=== PATIENT | male | born 1955 | race Caucasian/White ===

== ENCOUNTER → 2018-07-27 | Outpatient (CLI) | payer BC ==
--- NOTE | 2018-07-28 09:13 | US ---
EXAM DESCRIPTION: Renal CLINICAL HISTORY: 63 years Male, N18.4 COMPARISON: None. TECHNIQUE: Retroperitoneal sonogram was performed to evaluate the kidneys and bladder. FINDINGS: Right kidney Right renal length is 10.7 cm. Renal cortical echogenicity appears increased consistent with chronic renal parenchymal disease. Correlate with renal function studies. Mild diffuse cortical thinning. No right renal mass or shadowing stone. Small cyst in the lateral right kidney measures 1.3 cm. No hydronephrosis. Left kidney Left renal length is 11.4 cm. Renal cortical thickness is normal but echogenicity appears increased consistent with chronic renal parenchymal disease. No left renal mass, cyst or shadowing stone. No hydronephrosis. Urinary bladder Bladder wall thickness is normal for degree of distention. No bladder mass. Bladder volume is measured as 100 cc. IMPRESSION: Hyperechoic kidneys consistent with chronic renal parenchymal disease. Unremarkable appearance of the urinary bladder. Electronically signed by: Marko Warner MD 07/28/2018 9:12 AM CDT
== END ==
LOC: US 16:09
PROVIDERS: ATTEND Internal Medicine
DX: N18.4 Chronic kidney disease, stage 4 (severe) (principal)

== ENCOUNTER → 2018-07-31 | Outpatient (CLI) | payer BC | LOC: LAB.O 08:37 | PROVIDERS: ATTEND Internal Medicine | DX: N17.9 Acute kidney failure, unspecified (principal); N18.4 Chronic kidney disease, stage 4 (severe); I10 Essential (primary) hypertension ==

== ENCOUNTER 2020-02-15 05:44 | Day surgery (SDC) | payer BC, OTHER ==
[2020-02-15] MEDS ORDERED: LIDOCAINE 1% 10 ML VIAL INJ ONE (07:00)
[2020-02-15] MEDS ORDERED: PROPOFOL 200 MG/20 ML VIAL IV ONE (07:00)
[2020-02-15] MEDS ORDERED: LACTATED RINGERS 1,000 ML IVS ONE (07:35)
[2020-02-15] MEDS ORDERED: LEVALBUTEROL NEBS 1.25 MG/3 ML VIAL NEB ONE (09:39)
--- NOTE | 2020-02-15 09:42 | OP ---
DATE OF PROCEDURE: 02/15/20 PREOPERATIVE DIAGNOSIS: 1. Diarrhea. 2. Dialysis. 3. First colonoscopy at age 64. PROCEDURE: 1. Colonoscopy. SURGEON: Boaz John MD PROCEDURE: General anesthesia was induced in the lateral position. Digital rectal exam was normal. The colonoscope was introduced. We intubated the cecum and took a polyp along the way. After identifying the cecum, upon withdrawal, a polyp was taken with a snare at the proximal transverse colon. It was approximately a 1.2 cm polyp. An additional one was at the distal transverse colon taken with forceps, completely removed. This was about 1.5 cm. There was another 2 mm polyp taken with biopsy forceps at the distal descending colon and then in the sigmoid at about 30 cm was a large polyp, taking up to 30% circumference. It was pedunculated, but the stalk was quite large. It was in a corner, and we could take about half of it. The remainder was not able to be safely removed with a snare. It was marked with 3 mL of dye. The remainder of the exam was normal. We will check pathology, possibly return to remove more or consider a laparoscopic colotomy with polyp removal if it is not not malignant. The patient tolerated the procedure and was taken to Recovery to be discharged. #[id number] cc: Sonali Ham MD [facility]ITAL[facility]cepc[facility]
[2020-02-15 12:17] VITALS: BP 175/80; TEMP 98.2; O2SAT 93
== END 2020-02-15 11:45 | disposition home or self-care (01) ==
LOC: AMB 05:44
PROVIDERS: ATTEND Surgery
DX: R19.7 Diarrhea, unspecified (principal); D12.4 Benign neoplasm of descending colon; D12.3 Benign neoplasm of transverse colon; D12.6 Benign neoplasm of colon, unspecified; J44.9 Chronic obstructive pulmonary disease, unspecified; I12.0 Hypertensive chronic kidney disease with stage 5 chronic kidney disease or end stage renal disease; E11.22 Type 2 diabetes mellitus with diabetic chronic kidney disease; N18.6 End stage renal disease; Z79.899 Other long term (current) drug therapy; Z79.82 Long term (current) use of aspirin; Z99.2 Dependence on renal dialysis
CPT/HCPCS: 00811; 36416; 45380; 45385; 82948; 93005; 94640; J3490; J7120

== ENCOUNTER → 2020-03-07 | Outpatient (CLI) | payer BC, OTHER ==
--- NOTE | 2020-03-07 09:38 | CT ---
EXAM DESCRIPTION: CT ABDOMEN AND PELVIS WITH CONTRAST CLINICAL HISTORY: POLYP OF SIGMOID COLON COMPARISON: Previous renal sonogram July 27, 2018 TECHNIQUE: CT of the abdomen and pelvis are performed during IV bolus administration of 100 mL of Isovue 300. Oral contrast media is administered as well. FINDINGS: In the lower chest, small to moderate bilateral pleural effusions are present with patchy consolidation/partial volume loss in the inferior lingula and both lower lobes. Heart size is prominent. CT abdomen Prominent retroperitoneal lymph nodes are noted. Reactive nodes are favored over metastatic nodes in a patient with a history of colon polyp. Lymphadenopathy syndrome or early lymphoproliferative disorder or granulomatous infection might all be considered. The largest node in the left periaortic region at the level of the left renal hilum has a short axis dimension measurement of 1.3 cm with a normal fatty hilum. Other nodes in the right periaortic and aortocaval regions are smaller in the 0.3 to 1.0 cm size range. Small right renal lesion is consistent with a cyst 9 mm. A cyst was seen in the right kidney on the previous sonogram July 27, 2018 which measured 1.3 cm. Tiny cyst in the anterior left kidney measures 6 mm. No cyst was seen in the left kidney on the previous study. Mild prominence of intrarenal collecting systems. No ureteral obstructing lesion. Otherwise the liver, spleen, pancreas, gallbladder, adrenal glands, stomach and kidneys are unremarkable in appearance. Early portal venous phase enhancement the liver. Prominent IVC may indicate increased right heart pressures. No inflammation around the pancreas. No renal stones or hydronephrosis. No bowel dilatation to suggest obstruction. No free air or free fluid. CT pelvis Appendix appears normal. No inflammation around the cecum or terminal ileum or sigmoid colon. Bladder and distal ureters are negative for stones. Bladder appears thick walled, moderately distended. Normal enhancement of pelvic vessels. No inguinal or lower pelvic adenopathy. Bone window images are negative for fracture or lytic lesion. Advanced degenerative disc disease with vacuum disc phenomenon at L5-S1. Orthopedic screw in the left ilium and sacrum. Another screw in the left supra-acetabular region. Degenerative narrowing of the hip joints and pubic symphysis. Old healed ischiopubic fractures bilaterally. Old healed left sacral fracture. Coronal and sagittal reformatted images confirm the findings. IMPRESSION: [id number] bilateral pleural effusions with patchy infiltrates or partial volume loss in the lingula and lower lobes. Prominent retroperitoneal nodes probably reactive. Prominent bladder wall thickness. This exam was performed according to our departmental dose-optimization program, which includes automated exposure control, adjustment of the mA and/or kV according to patient size and/or use of iterative reconstruction technique. Total DLP equals 1092.09 mGycm. Electronically signed by: Marko Warner MD 03/07/2020 9:36 AM CDT
== END ==
LOC: CT 08:00
PROVIDERS: ATTEND Surgery
DX: D12.5 Benign neoplasm of sigmoid colon (principal); J90 Pleural effusion, not elsewhere classified; R91.8 Other nonspecific abnormal finding of lung field; R59.9 Enlarged lymph nodes, unspecified; N32.9 Bladder disorder, unspecified

== ENCOUNTER 2020-07-16 10:21 | Emergency (ER) | payer BC, OTHER ==
[2020-07-16 10:36] VITALS: O2SAT 95
--- NOTE | 2020-07-16 10:45 | ED.PDOC ---
History of Present Illness - General Chief Complaint: Lower Extremity Injury Stated Complaint: right lower leg pain,callus on foot Time Seen by Provider: 07/16/20 10:22 Source: patient, RN notes reviewed, Vital Signs reviewed, old records - History of Present Illness Initial Comments: 65 yo insulin dependent diabetic with hx of ESRD and multiple amputations comes in after fall. patient fell two days ago after his artificial leg did not lock in properly. His right foot went under him. Didn't have pain immediately, but today woke up with right foot and ankle pain. pain worse with movement. has a hx of callous on bottom of right foot which has been present for several years. Does follow wound care in [facility]. no fever. patient also noted that he has not been to dialysis for the past week. Follows Dr Wynn for wound care. Dr. Ham for nephrology. patient does make urine, but very little. Allergies/Adverse Reactions: Allergies NO KNOWN ALLERGY Allergy (Verified 10/13/15 14:44) Home Medications: Ambulatory Orders Gabapentin [Neurontin] 400 mg PO TID 10/13/15 Amlodipine Besylate 10 mg PO DAILY 02/11/20 Atorvastatin Calcium [Lipitor] 20 mg PO DAILY 02/11/20 Clonidine HCl 0.3 mg PO DAILY 02/11/20 Insulin Aspart [Novolog Flexpen] 5 unit SC PRN PRN 02/11/20 Ramipril 10 mg PO DAILY 02/11/20 Sevelamer Carbonate 800 mg PO TID 02/11/20 Aspirin [Aspirin Adult Low Dose] 81 mg PO DAILY 07/16/20 Review of Systems - Review of Systems Constitutional: Denies: chills, fever EENTM: Denies: blurred vision, ear pain, mouth pain Respiratory: Denies: cough, short of breath Cardiology: Denies: chest pain, palpitations Gastrointestinal/Abdominal: States: other - denies black or bloody bm. Denies: abdominal pain, nausea, vomiting Genitourinary: Denies: dysuria, hematuria Musculoskeletal: States: joint pain, joint swelling. Denies: back pain, muscle pain, muscle stiffness Neurological: Denies: headache, pre-existing deficit, weakness Endocrine: Denies: unexplained weight gain, unexplained weight loss Hematologic/Lymphatic: Denies: blood clots, easy bleeding, easy bruising Past Medical History (General) - Patient Medical History Hx Stroke: No Hx Cardiac Disorders: Yes - Blocked Arteries Hx Congestive Heart Failure: No Hx Hypertension: Yes Hx Diabetes: Yes Hx Renal Disease: Yes - Dialysis ,, Hx MRSA: No Hx Other - free text: colon cancer, anemia Surgical History: cancer surgery - Vaccination History Hx Tetanus, Diphtheria Vaccination: - unknown Hx Influenza Vaccination: Yes - 2019 Hx Pneumococcal Vaccination: Yes - Social History Hx Tobacco Use: Yes Hx Alcohol Use: No Hx Substance Use: No Hx Substance Use Treatment: No Hx Depression: No - Female History Patient : No Family Medical History - Family History Mother Living Status: Still Living Physical Exam - Physical Exam General Appearance: Alert, Comfortable, No apparent distress, Well Developed, Well Groomed, Well Hydrated, Well Nourished Eyes, Ears, Nose, Throat: PERRL/EOMI, normal ENT inspection, TMs normal Neck: non-tender, full range of motion, supple, normal inspection Cardiovascular/Respiratory: regular rate, rhythm, no M/R/G, normal peripheral pulses, no JVD, normal breath sounds, no respiratory distress Gastrointestinal/Abdominal: non-tender, no organomegaly Back: normal inspection, no CVA tenderness, no vertebral tenderness Thigh/Hip: normal inspection, non-tender, no evidence of injury, normal ROM Leg: other - left AKA, right foot callous without erythema, drainage or swelling. Right ankle pain. Foot: other - pulses 2+/4 on right dorsalis pedis. Neuro/Tendon: normal motor functions, responds to pain, no evidence tendon injury Mental Status: alert, oriented x 3 Skin: normal color, warm/dry Progress - Progress Progress: 07/16/20 11:27 partial ddx: fracture, infection, hyperkalemia, sprain. Due to missing dialysis over one week will get blood work. anemia most likely anemia of chronic disease, no concern for acute bleed at this time. Due to missed dialysis, excepted K to be high. patient refused kayexalate. Call dialysis center who is able to see patient today at 12:45. Will give one time dose of albuterol. I suspect elevated CRP is due to chronic inflammatory state and not due to acute infection. Recommend calcium gluconate IV but patient refused. Corrected qt is less than half or R-R interval, but is calculated 490. Thus recommend Ca gluconate. Due to upcoming dialysis appointment and no peaked T waves on EKG will hold off repeat K, and send directly to dialysis which is the ultimate treatment. 07/16/20 11:47 The data reviewed when caring for this patient included: nurse notes, prior records, etc. The history and assessments from nurses notes were reviewed and considered, and the patient's home medication list was also reviewed and co nsidered. My assessment and the results of testing completed here in the ED were discussed with the patient/family. All questions were answered, and they express understanding of my assessment and the plan. They have been instructed to return if their symptoms worsen, and have been asked to follow up with their primary care physician to recheck today's presenting complaint. patient is to go directly to dialysis. He is also to call his wound care doctor to discuss MRI of his foot. Strict return precautions given. patient was discharged to dialysis in stable condition. Camila Eduardo DO #[id number] 07/16/20 11:50 - Results/Orders Results/Orders: 07/16/20 10:50 ERYTHROCYTE SEDIMENTATION RATE Stat 07/16/20 11:12 EKG Assessment ONCE 07/16/20 11:15 EKG STAT Laboratory Results WBC 10.2 K/mm3 (4.8-10.8) 07/16/20 10:50 RBC 2.74 M/mm3 (4.70-6.10) L 07/16/20 10:50 Hgb 8.6 gm/dL (14.0-18.0) L 07/16/20 10:50 Hct 25.1 % (42.0-52.0) L 07/16/20 10:50 MCV 91.5 fl (80.0-94.0) 07/16/20 10:50 MCH 31.4 pg (27.0-31.0) H 07/16/20 10:50 MCHC 34.3 g/dL (33.0-37.0) 07/16/20 10:50 RDW 17.2 % (11.5-14.5) H 07/16/20 10:50 Plt Count 297 K/mm3 (130-400) 07/16/20 10:50 MPV 7.9 fl (7.40-10.4) 07/16/20 10:50 Absolute Neuts (auto) 8.30 K/uL (1.8-6.8) H 07/16/20 10:50 Absolute Lymphs (auto) 0.90 K/uL (1.0-3.4) L 07/16/20 10:50 Absolute Monos (auto) 0.70 K/uL (0.2-0.8) 07/16/20 10:50 Absolute Eos (auto) 0.20 K/uL (0.0-0.4) 07/16/20 10:50 Absolute Basos (auto) 0.10 K/uL (0.0-0.1) 07/16/20 10:50 Neutrophils % 81.3 % (42.0-78.0) H 07/16/20 10:50 Lymphocytes % 8.6 % (20.0-50.0) L 07/16/20 10:50 Monocytes % 7.3 % (2.0-9.0) 07/16/20 10:50 Eosinophils % 1.9 % (1.0-5.0) 07/16/20 10:50 Basophils % 0.9 % (0.0-2.0) 07/16/20 10:50 Sodium 136 mmol/L (135-145) 07/16/20 10:50 Potassium 5.7 mmol/L (3.6-5.0) H 07/16/20 10:50 Chloride 91 mmol/L (101-111) L 07/16/20 10:50 Carbon Dioxide 27 mmol/L (21-31) 07/16/20 10:50 Anion Gap 23.7 (12-18) H 07/16/20 10:50 BUN 49 mg/dL (7-18) H 07/16/20 10:50 Creatinine 6.59 mg/dL (0.6-1.3) H* 07/16/20 10:50 BUN/Creatinine Ratio 7.4 (10-20) L 07/16/20 10:50 Random Glucose 165 mg/dL (70-105) H 07/16/20 10:50 Serum Osmolality 288.6 mOsm/L (275-295) 07/16/20 10:50 Calcium 8.0 mg/dL (8.4-10.2) L 07/16/20 10:50 Total Bilirubin 1.7 mg/dL (0.2-1.0) H 07/16/20 10:50 AST 22 IU/L (10-42) 07/16/20 10:50 ALT 23 IU/L (10-60) 07/16/20 10:50 Alkaline Phosphatase 186 IU/L (42-121) H 07/16/20 10:50 C-Reactive Protein 6.2 mg/dL (0-1.0) H 07/16/20 10:50 Serum Total Protein 7.7 gm/dL (6.4-8.2) 07/16/20 10:50 Albumin 3.2 g/dl (3.2-5.5) 07/16/20 10:50 Globulin 4.5 gm/dL (2.3-3.5) H 07/16/20 10:50 Albumin/Globulin Ratio 0.7 (1.1-1.9) L 07/16/20 10:50 - Additional EKG/XRAY/Consults EKG #2: Sinus Comments: HR 66, no peaked T waves, prolong QT, nonspecfic t wave changes. XRAY #2: ankle - no acute fractures, OA, calcified vessels. Comments: foot no acute fractures. Departure - Departure Clinical Impression: Hyperkalemia, ESRD (end stage renal disease) Fall Qualifiers: Encounter type: initial encounter Qualified Code(s): W19.XXXA - Unspecified fall, initial encounter Ankle sprain Qualifiers: Encounter type: initial encounter Involved ligament of ankle: unspecified ligament Laterality: right Qualified Code(s): S93.401A - Sprain of unspecified ligament of right ankle, initial encounter Time of Disposition: 11:29 Disposition: Discharge to Home or Self Care Departure Forms: ED Discharge - Pt. Copy, Patient Portal Self Enrollment Instructions: DI for Leg Pain, Corns and Calluses, Low Potassium Diet, Preventing Falls, Foot Sprain (DC) Referrals: Larry Alicea MD [Primary Care Provider] - 1-2 Weeks Home Medications: Ambulatory Orders Gabapentin [Neurontin] 400 mg PO TID 10/13/15 Amlodipine Besylate 10 mg PO DAILY 02/11/20 Atorvastatin Calcium [Lipitor] 20 mg PO DAILY 02/11/20 Clonidine HCl 0.3 mg PO DAILY 02/11/20 Insulin Aspart [Novolog Flexpen] 5 unit SC PRN PRN 02/11/20 Ramipril 10 mg PO DAILY 02/11/20 Sevelamer Carbonate 800 mg PO TID 02/11/20 Aspirin [Aspirin Adult Low Dose] 81 mg PO DAILY 07/16/20 Additional Instructions: Please call your wound doctor to follow up and possibly get MRI of foot. If develop redness, worsening pain or fever return to the emergency department. Please go to dialysis today at 12:45/
--- NOTE | 2020-07-16 11:17 | RAD ---
EXAM DESCRIPTION: Ankle,Right 3 Views CLINICAL HISTORY: fall COMPARISON: None. IMPRESSION: 3 views of the right ankle show no acute fracture, focal bone destruction, or joint dislocation. Bony hypertrophy of the distal fibula could represent sequela of remote prior trauma versus osteoarthritic changes. Severe vascular calcifications are identified. Soft tissues are otherwise unremarkable. Electronically signed by: Sharan Fields MD 07/16/2020 11:15 AM CDT
--- NOTE | 2020-07-16 11:19 | RAD ---
EXAM DESCRIPTION: Foot,Right 3 Views CLINICAL HISTORY: fall COMPARISON: None IMPRESSION: 3 views of the right foot show diffuse osteopenia the osseous structures. No acute fracture or dislocation is seen. Amputation of the distal phalanx of the great toe, second and fourth toes, and most of the fifth metatarsal are seen. Severe vascular calcifications are identified. Significant dorsiflexion of the third toe is seen. Osseous structures are diffusely osteopenic. Electronically signed by: Sharan Fields MD 07/16/2020 11:17 AM CDT
[2020-07-16] MEDS ORDERED: ALBUTEROL SULFATE 2.5 MG/3 ML VIAL NEB ONE (11:21)
[2020-07-16] MEDS ORDERED: SOD POLYSTYRENE SULFONATE 15 GM/60 ML BTTL PO ONE (11:22)
[2020-07-16 11:52] VITALS: BP 156/81; TEMP 98.4
== END 2020-07-16 11:52 | disposition home or self-care (01) ==
LOC: ER 10:21
DX: S93.401A Sprain of unspecified ligament of right ankle, initial encounter (principal); E87.5 Hyperkalemia; E11.22 Type 2 diabetes mellitus with diabetic chronic kidney disease; I12.0 Hypertensive chronic kidney disease with stage 5 chronic kidney disease or end stage renal disease; N18.6 End stage renal disease; Z99.2 Dependence on renal dialysis; O25.10 Malnutrition in pregnancy, unspecified trimester; Z79.84 Long term (current) use of oral hypoglycemic drugs; Z79.899 Other long term (current) drug therapy; W19.XXXA Unspecified fall, initial encounter; Y92.9 Unspecified place or not applicable
CPT/HCPCS: 36415; 73610; 73630; 80053; 85025; 85651; 86140; 93005; 94640; J7611